=== PATIENT | female | born 1985 | race Caucasian/White ===

== ENCOUNTER 2018-07-13 10:41 | Inpatient (IN) | payer MEDICAID ==
[~2018-07-13] VITALS: Ht 175.3 cm; Wt 61.2 kg
[~2018-07-13 10:41] MED LIST: ALPR1TAB2; CARI250T; IPRIH; NOR10T PO
[2018-07-13] MEDS ORDERED: SODIUM CHLORIDE 0.9% 1,000 ML IV ONE (10:52)
[2018-07-13] MEDS ORDERED: LORazepam 2MG/ML-1ML VIAL IV ONE (11:00)
[2018-07-13 11:31] LABS: Basophils # (auto) 0.1 uL; Basophils % (auto) 1.4 % (0.0-2.0); Eosinophils # (auto) 0.2 uL; Eosinophils % (auto) 3.3 % (0.0-7.0); Hematocrit 42.2 % (36.0-46.0); Hemoglobin 14.3 g/dL (12.2-16.2); Lymphocytes # (auto) 2.4 uL; Mean Corpuscular Hemoglobin 31.9 pg (28.0-32.0); Mean Corpuscular Volume 93.9 fL (80.0-100.0); Monocytes # (auto) 0.5 uL; Monocytes % (auto) 7.5 % (0.0-12.0); Neutrophils # (auto) 2.9 uL; Neutrophils % (auto) 47.8 % (37.0-80.0); Nucleated Red Blood Cells % 0.1 %; Platelet Count (auto) 241 10^3/uL (140-450)
[2018-07-13 11:48] LABS: INR 1.02 (0.9-1.15); Partial Thromboplastin Time 26.1 sec (23.78-33.04); Prothrombin Time 10.9 sec (9.27-12.13)
[2018-07-13 11:53] LABS: Alanine Aminotransferase 19 U/L (13-56); Albumin 4.3 g/dL (3.4-5.0); Alkaline Phosphatase 35 U/L (45-117); Anion Gap 11 (5-15); Aspartate Aminotransferase 9 U/L (15-37); BUN/Creatinine Ratio 7.7; Bilirubin, Total 0.4 mg/dL (0.2-1.0); Blood Urea Nitrogen 10 mg/dL (7-18); Calcium 8.9 mg/dL (8.5-10.1); Carbon Dioxide 18 mmol/L (21-32); Chloride 106 mmol/L (98-107); GFR African American 61 mL/min; GFR Non-African American 51 mL/min; Glucose 118 mg/dL (74-106); Sodium 135 mmol/L (136-145); Total Protein 7.8 g/dL (6.4-8.2)
[2018-07-13 11:54] LABS: Potassium 2.5 mmol/L (3.5-5.1)
[2018-07-13] MEDS ORDERED: POTASSIUM CHL 20MEQ/100ML 100 ML IV ONE (12:00)
[2018-07-13] MEDS ORDERED: POTASSIUM EFFERVESENT TAB 25 MEQ PO ONE (12:00)
[2018-07-13 12:17] LABS: Urine Pregnacy Test Negative (Negative)
[2018-07-13 12:18] LABS: Urine Bacteria FEW /hpf (None Seen); Urine Blood Negative /uL (Negative); Urine Specific Gravity 1.002 (1.001-1.035); Urine WBC <1 /hpf (0 - 5)
[2018-07-13 12:29] LABS: Alcohol, Urine < 3.0 mg/dL (0-5); Amphetamine Screen, Urine POSITIVE (NEGATIVE); Barbiturate Scree,Urine NEGATIVE (NEGATIVE); Benzodiazephine Screen, Urine NEGATIVE (NEGATIVE); Cannabinoid Screen, Urine NEGATIVE (NEGATIVE); Cocaine Screen, Urine NEGATIVE (NEGATIVE); Opiate Scree,Urine NEGATIVE (NEGATIVE); Phencyclidine Screen, Urine NEGATIVE (NEGATIVE)
[2018-07-13] MEDS ORDERED: KETOROLAC TROMETH 30 MG/ML 1ML VIAL ONE (15:27)
[2018-07-13] MEDS ORDERED: KETOROLAC TROMETH 30 MG/ML 1ML VIAL IV ONE (15:30)
[2018-07-13] MEDS ORDERED: FURO40TA4 PO (15:50)
[2018-07-13] MEDS ORDERED: CHOL20007 PO (15:50)
[2018-07-13] MEDS ORDERED: POTA1TAB61 PO (15:50)
[2018-07-13] MEDS ORDERED: CAR3125T PO (15:50)
[2018-07-13] MEDS ORDERED: ALPR0.5T PO (15:50)
[2018-07-13] MEDS ORDERED: NITROGLYCERIN 0.4 MG SL TAB SL PRN ×2 (16:15)
[2018-07-13] MEDS ORDERED: ZOLPIDEM TARTRATE 5 MG TAB PO PRN (16:15)
[2018-07-13] MEDS: ENALAPRIL MALEATE 2.5 MG TAB PO SCH ×2 (16:15→22:00)
[2018-07-13] MEDS ORDERED: CLOPIDOGREL BISULFATE 75 MG TAB PO ONE (16:15)
[2018-07-13] MEDS ORDERED: cefTRIAXone 1GM/10ml IVPUSH 10 ML IV ONE (16:15)
[2018-07-13] MEDS ORDERED: ACETAMINOPHEN 325 MG TAB PO PRN (16:15)
[2018-07-13] MEDS ORDERED: LORazepam 0.5 MG TAB PO PRN (16:15)
[2018-07-13] MEDS ORDERED: ASPirin 81 mg TAB PO ONE (16:15)
[2018-07-13] MEDS ORDERED: ALUM & MAG HYDROX-SIMETH LIQ(MAALOX) 30 ML PO ONE (16:15)
[2018-07-13] MEDS ORDERED: MORPHINE SULFATE 4 MG/ML SYR/VIAL IV PRN (16:15)
[2018-07-13] MEDS ORDERED: MORPHINE SULF INJ 2 MG/ML SYRINGE 1ML IV PRN (16:15)
[2018-07-13] MEDS ORDERED: ONDANSETRON HCL 4 MG/2 ML VIAL IV PRN (16:15)
[2018-07-13] MEDS ORDERED: LISI2.5T47 PO (19:58)
[2018-07-13 20:00] VITALS: BP 113/73
[2018-07-13 20:30] LABS: BUN/Creatinine Ratio 9.9; Calcium 8.2 mg/dL (8.5-10.1); Potassium 3.6 mmol/L (3.5-5.1)
[2018-07-13 22:00] VITALS: BP 113/73
[2018-07-13] MEDS ORDERED: ATORVASTATIN 20 MG TAB PO SCH (22:00)
[2018-07-13] MEDS: CARVEDILOL 3.125 MG TAB PO SCH (22:00)
[2018-07-13] MEDS: SODIUM CHLOR 0.9% PF (SALINE LOCK) 10ML VIAL/SYR IV SCH (22:50)
[2018-07-13] MEDS: HYDROcodone-ACET 10/325MG TAB PO PRN (23:11)
[2018-07-14 05:00] VITALS: BP 103/57
[2018-07-14 06:30] LABS: Basophils # (auto) 0 uL; Eosinophils # (auto) 0.2 uL; Hematocrit 36.9 % (36.0-46.0); Hemoglobin 12.6 g/dL (12.2-16.2); Lymphocytes # (auto) 1.6 uL; Lymphocytes % (auto) 41.5 % (10.0-50.0); Mean Corpuscular Hemoglobin 32.3 pg (28.0-32.0); Mean Corpuscular Hgb Conc. 34.3 g/dL (32.0-36.0); Mean Corpuscular Volume 94.3 fL (80.0-100.0); Monocytes # (auto) 0.3 uL; Monocytes % (auto) 6.6 % (0.0-12.0); Neutrophils # (auto) 1.8 uL; Neutrophils % (auto) 45.9 % (37.0-80.0); Nucleated Red Blood Cells % 0.1 %; Platelet Count (auto) 157 10^3/uL (140-450); Red Blood Cells 3.91 10^6/uL (4.0-5.20); Red Cell Distribution Width 13.3 % (11.8-14.3); White Blood Cell 3.9 10^3/uL (4.4-10.8)
[2018-07-14] MEDS: SODIUM CHLOR 0.9% PF (SALINE LOCK) 10ML VIAL/SYR IV SCH ×2 (06:31→14:00)
[2018-07-14 06:51] LABS: Albumin 3.6 g/dL (3.4-5.0); BUN/Creatinine Ratio 11.3; Bilirubin, Total 0.4 mg/dL (0.2-1.0); Calcium 8.2 mg/dL (8.5-10.1); Magnesium 2.2 mg/dL (1.6-2.6); Potassium 4.1 mmol/L (3.5-5.1); Total Protein 6.4 g/dL (6.4-8.2)
[2018-07-14 08:00] VITALS: BP 103/67
[2018-07-14] MEDS: HYDROcodone-ACET 10/325MG TAB PO PRN (09:00)
[2018-07-14] MEDS ORDERED: cefTRIAXone 1GM/10ml IVPUSH 10 ML IV SCH (09:00)
[2018-07-14] MEDS: ENALAPRIL MALEATE 2.5 MG TAB PO SCH (10:00)
[2018-07-14] MEDS: CARVEDILOL 3.125 MG TAB PO SCH (10:00)
[2018-07-14] MEDS ORDERED: CLOPIDOGREL BISULFATE 75 MG TAB PO SCH (10:00)
[2018-07-14] MEDS ORDERED: ASPirin 81 mg TAB PO SCH (10:00)
[2018-07-14] MEDS ORDERED: DOCUSATE SOD 100 MG CAP PO SCH (10:00)
[2018-07-14 11:56] VITALS: BP 102/61
[2018-07-14] MEDS ORDERED: HYDROcodone-ACET 10/325MG TAB PO ONE (13:30)
[2018-07-14 15:09] VITALS: BP 102/61
== END 2018-07-14 16:12 | disposition home or self-care (01) | DRG 463 ==
LOC: EDBD 10:41 → ER 10:41 → TELE 10:42 → TELE-WESTW 19:34
PROVIDERS: ADMIT Internal Medicine; ATTEND Internal Medicine
DX: N39.0 Urinary tract infection, site not specified (principal); I50.40 Unspecified combined systolic (congestive) and diastolic (congestive) heart failure; N17.9 Acute kidney failure, unspecified; E87.1 Hypo-osmolality and hyponatremia; N18.3 Chronic kidney disease, stage 3 (moderate); F11.20 Opioid dependence, uncomplicated; F41.9 Anxiety disorder, unspecified; G43.909 Migraine, unspecified, not intractable, without status migrainosus; F41.0 Panic disorder [episodic paroxysmal anxiety]; E87.6 Hypokalemia; F17.210 Nicotine dependence, cigarettes, uncomplicated; Z82.49 Family history of ischemic heart disease and other diseases of the circulatory system; Z80.9 Family history of malignant neoplasm, unspecified; F15.90 Other stimulant use, unspecified, uncomplicated
CPT/HCPCS: 36415; 71045; 80048; 80053; 80061; 80307; 81001; 81025; 83735; 83880; 84443; 84484; 85025; 85610; 85730; 87086; 87088; 87186; 93005; 93306; 96361; 96374; 96375; J0696; J1885; J2405; J3480

== ENCOUNTER 2018-09-03 12:26 | Emergency (ER) | payer MEDICAID ==
[~2018-09-03] VITALS: Ht 175.3 cm; Wt 56.7 kg
[~2018-09-03 12:26] MED LIST changes: +ALPR0.5T PO; -ALPR1TAB2; +CAR3125T PO; -CARI250T; +CHOL20007 PO; +FURO40TA4 PO; -IPRIH; +LISI2.5T47 PO; +POTA1TAB61 PO
[2018-09-03 12:38] VITALS: BP 129/75
[2018-09-03] MEDS ORDERED: SODIUM CHLORIDE 0.9% 1,000 ML IVB ONE (12:40)
[2018-09-03] MEDS ORDERED: ASPirin 81 mg TAB PO ONE (12:45)
[2018-09-03] MEDS ORDERED: MORPHINE SULFATE 4 MG/ML SYR/VIAL IV ONE (12:45)
[2018-09-03] MEDS ORDERED: ONDANSETRON HCL 4 MG/2 ML VIAL IV ONE (12:45)
[2018-09-03 13:49] LABS: Basophils # (auto) 0.1 uL; Basophils % (auto) 1.4 % (0.0-2.0); Eosinophils # (auto) 0.2 uL; Eosinophils % (auto) 5.1 % (0.0-7.0); Hematocrit 40.2 % (36.0-46.0); Hemoglobin 13.6 g/dL (12.2-16.2); Lymphocytes # (auto) 1.4 uL; Lymphocytes % (auto) 35.9 % (10.0-50.0); Mean Corpuscular Hemoglobin 31.3 pg (28.0-32.0); Mean Corpuscular Hgb Conc. 33.7 g/dL (32.0-36.0); Mean Corpuscular Volume 92.8 fL (80.0-100.0); Monocytes # (auto) 0.4 uL; Monocytes % (auto) 9.5 % (0.0-12.0); Neutrophils # (auto) 1.9 uL; Neutrophils % (auto) 48.1 % (37.0-80.0); Platelet Count (auto) 221 10^3/uL (140-450); Red Blood Cells 4.33 10^6/uL (4.0-5.20); Red Cell Distribution Width 13.5 % (11.8-14.3); White Blood Cell 3.9 10^3/uL (4.4-10.8)
[2018-09-03 14:04] LABS: INR 0.99 (0.9-1.15); Partial Thromboplastin Time 25.9 sec (23.78-33.04); Prothrombin Time 10.6 sec (9.27-12.13)
[2018-09-03 14:07] LABS: Alanine Aminotransferase 19 U/L (13-56); Albumin 4.1 g/dL (3.4-5.0); Anion Gap 5 (5-15); Blood Urea Nitrogen 10 mg/dL (7-18); Calcium 8.8 mg/dL (8.5-10.1); Carbon Dioxide 29 mmol/L (21-32); Chloride 104 mmol/L (98-107); Glucose 70 mg/dL (74-106); Magnesium 2.4 mg/dL (1.6-2.6); Potassium 3.3 mmol/L (3.5-5.1); Sodium 138 mmol/L (136-145)
[2018-09-03 14:12] LABS: Alkaline Phosphatase 35 U/L (45-117); Aspartate Aminotransferase 9 U/L (15-37); BUN/Creatinine Ratio 11.4; Bilirubin, Total 0.4 mg/dL (0.2-1.0); GFR African American 96 mL/min; GFR Non-African American 80 mL/min; Total Protein 7.5 g/dL (6.4-8.2)
== END 2018-09-03 14:43 | disposition left against medical advice (07) ==
LOC: ER 12:26 → EDBD 12:26 → EDSEX 12:26 → ER 14:43
DX: R07.89 Other chest pain (principal); E87.6 Hypokalemia; R42 Dizziness and giddiness; F17.210 Nicotine dependence, cigarettes, uncomplicated
CPT/HCPCS: 36415; 71045; 80053; 83735; 84484; 85025; 85610; 85730; 93005; 94761

== ENCOUNTER 2019-12-18 21:46 | Emergency (ER) | payer MEDICAID ==
[~2019-12-18] VITALS: Ht 170.2 cm; Wt 63.5 kg
[2019-12-18 22:37] LABS: Basophils # (auto) 0.1 uL; Basophils % (auto) 1.1 % (0.0-2.0); Eosinophils # (auto) 0.1 uL; Eosinophils % (auto) 1.8 % (0.0-7.0); Hematocrit 46.5 % (36.0-46.0); Lymphocytes # (auto) 2.9 uL; Mean Corpuscular Hemoglobin 32.6 pg (28.0-32.0); Mean Corpuscular Hgb Conc. 34.5 g/dL (32.0-36.0); Mean Corpuscular Volume 94.4 fL (80.0-100.0); Monocytes # (auto) 0.6 uL; Monocytes % (auto) 7.8 % (0.0-12.0); Neutrophils # (auto) 4.1 uL; Neutrophils % (auto) 52.3 % (37.0-80.0); Nucleated Red Blood Cells % 0.1 %; Platelet Count (auto) 349 10^3/uL (140-450); Red Blood Cells 4.92 10^6/uL (4.0-5.20); Red Cell Distribution Width 13.7 % (11.8-14.3); White Blood Cell 7.9 10^3/uL (4.4-10.8)
[2019-12-18 22:58] LABS: Albumin 4.3 g/dL (3.4-5.0); Anion Gap 10 (5-15); Blood Urea Nitrogen 24 mg/dL (7-18); Calcium 9.1 mg/dL (8.5-10.1); Carbon Dioxide 25 mmol/L (21-32); Chloride 101 mmol/L (98-107); Glucose 127 mg/dL (74-106); Magnesium 2.4 mg/dL (1.6-2.6); Potassium 3.7 mmol/L (3.5-5.1); Sodium 136 mmol/L (136-145)
[2019-12-18 23:03] LABS: Alanine Aminotransferase 19 U/L (13-56); Alkaline Phosphatase 42 U/L (45-117); Aspartate Aminotransferase 14 U/L (15-37); Bilirubin, Total 0.8 mg/dL (0.2-1.0); GFR African American 63 mL/min; GFR Non-African American 52 mL/min; Total Protein 7.8 g/dL (6.4-8.2)
[2019-12-18] MEDS ORDERED: FOLIC ACID 1 MG TAB PO ONE (23:45)
[2019-12-18] MEDS ORDERED: LORazepam 2MG/ML-1ML VIAL IV ONE (23:45)
[2019-12-18] MEDS ORDERED: MVI in SODIUM CHLORIDE 0.9% 1,010 ML ONE (23:48)
[2019-12-18] MEDS ORDERED: THIAMINE 100mg/ml INJ (200mg/2ml VIAL) ONE (23:54)
[2019-12-19 00:23] VITALS: BP 99/80
[2019-12-19 03:23] LABS: Urine Pregnacy Test Negative (Negative)
[2019-12-19 03:35] LABS: Alcohol, Urine < 3.0 mg/dL (0-5); Amphetamine Screen, Urine POSITIVE (NEGATIVE); Barbiturate Scree,Urine NEGATIVE (NEGATIVE); Benzodiazephine Screen, Urine POSITIVE (NEGATIVE); Cannabinoid Screen, Urine NEGATIVE (NEGATIVE); Cocaine Screen, Urine NEGATIVE (NEGATIVE); Opiate Scree,Urine NEGATIVE (NEGATIVE); Phencyclidine Screen, Urine NEGATIVE (NEGATIVE)
[2019-12-19] MEDS ORDERED: MULTIPLE VITAMIN 10 ML, THIAMINE INJ 100 MG in SODIUM CHLORIDE 0.9% 1,000 ML IV SCH (12:00)
== END 2019-12-19 02:58 | disposition home or self-care (01) ==
LOC: EDUNIT# 21:46 → EDBD 21:46 → ER 21:47
DX: F41.9 Anxiety disorder, unspecified (principal); R25.2 Cramp and spasm; F17.210 Nicotine dependence, cigarettes, uncomplicated
CPT/HCPCS: 36415; 80053; 80307; 81025; 83735; 84484; 85025; 93005; 96365; 96366; 96375; 99284; J2060; J3411; J3475; J7030